=== PATIENT | female | born 1975 | race Caucasian/White ===

== ENCOUNTER 2020-02-08 14:24 | Outpatient (CLI) | payer OTHER, SELFPAY ==
--- NOTE | ~2020-02-08 | US_ITS ---
EXAMINATION: US OB <=14 wk fetus w TV DATE: 02/08/2020 15:14 INDICATION: First trimester dating and viability assessment. TECHNIQUE: Real-time pelvic transabdominal and transvaginal ultrasound was performed. COMPARISON: None. FINDINGS: The uterus measures 12.0 x 6.8 x 7.2 cm. Multiple nabothian cysts are noted in the cervix. There is an intrauterine gestational sac. A yolk sac is identified. heart motion is identified measuring 129 beats per minute (bpm) by M-mode Doppler. The crown rump length measures 11 mm , which correlates with an estimated gestational age of 7 weeks and 2 day(s) (+/-) 5 day(s). The right ovary measures 2.7 x 1.5 x 1.9 cm. The left ovary measures 4.2 x 3.9 x 4.2 cm and contains a 3.4 cm cyst. There is normal vascular flow in the ovaries. There is no free fluid in the pelvis. IMPRESSION: 1. Live intrauterine with an estimated gestational age of 7 weeks and 2 day(s) (+/-) 5 day( s) and an estimated delivery date of 09/24/2020. Reviewed, dictated and finalized at location A. IMPRESSION: 1. Live intrauterine with an estimated gestational age of 7 weeks and 2 day(s) (+/-) 5 day(s) and an estimated delivery date of 09/24/2020.
== END 2020-02-08 14:25 | disposition home or self-care (01) ==
LOC: CHSIMG 14:27
PROVIDERS: Visit Provider Student in an Organized Health Care Education/Training Program
DX: Z34.90 Encounter for supervision of normal pregnancy, unspecified, unspecified trimester (principal)
CPT/HCPCS: 76801; 76817

== ENCOUNTER 2020-02-28 14:34 | Outpatient (CLI) | payer OTHER, SELFPAY ==
[2020-02-28 14:53] LABS: Basophils Percent Auto 0.3 % (0.2-1.2); Eosinophils Absolute Auto 0.1 K/mm3 (0-0.3); Eosinophils Percent Auto 1.5 % (0-4.4); Hematocrit 42.1 % (37.0-47.0); Hemoglobin 14.1 g/dL (12.0-15.0); Immature Granulocyte Absolute 0.02 K/mm3 (0.00-0.031); Immature Granulocyte Percent A 0.2 % (0-0.5); Lymphocytes Absolute Auto 1.57 K/mm3 (0.9-3.2); Lymphocytes Percent Auto 18.3 % (18.3-44.2); Mean Corpuscular HGB Conc 33.5 g/dl (32-36); Mean Corpuscular Hemoglobin 30.4 pg (26-34); Mean Corpuscular Volume 90.7 fl (80-100); Mean Platelet Volume 8.9 fl (7.4-10.4); Monocytes Absolute Auto 0.7 K/mm3 (0.1-0.6); Monocytes Percent Auto 7.7 % (2.6-8.5); Neutrophils Absolute Auto 6.2 K/mm3 (1.3-6.7); Platelet Count Result 251 k/mm3 (150-375); Red Blood Count 4.64 M/mm3 (4.2-5.4); Red Cell Distribution Width 13.7 % (11.5-14.5); White Blood Count 8.6 K/mm3 (4.5-10.0)
== END 2020-02-28 14:35 | disposition home or self-care (01) ==
PROVIDERS: Visit Provider Student in an Organized Health Care Education/Training Program
DX: O02.1 Missed abortion (principal)
CPT/HCPCS: 36415; 84702; 85025; 86850; 86900; 86901

== ENCOUNTER 2020-03-06 14:21 | Outpatient (CLI) | payer OTHER, SELFPAY ==
[2020-03-06 15:36] LABS: Beta HCG Quantitative 143.24 mIU/ML
== END 2020-03-06 14:22 | disposition home or self-care (01) ==
PROVIDERS: Visit Provider Student in an Organized Health Care Education/Training Program
DX: O03.9 Complete or unspecified spontaneous abortion without complication (principal)
CPT/HCPCS: 36415; 84702

== ENCOUNTER 2020-03-21 09:52 | Emergency (ER) | payer OTHER, SELFPAY ==
--- NOTE | ~2020-03-21 | US_ITS ---
EXAMINATION: US pelvic complete w TV EXAM DATE: 03/21/2020 10:52 INDICATION: Miscarriage 3 weeks ago. D and C. Bleeding. Concern for retained products of conception. TECHNIQUE: Pelvic transabdominal and transvaginal sonogram was performed. There are multiple graysca le and Doppler images available for interpretation. There is no prior study for comparison. FINDINGS: Uterus measures 10.0 x 4.8 x 6.5 cm, and is morphologically normal. Endometrial stripe me asures 7 mm, within normal limits. There are nabothian cysts. There is small region of decreased att enuation within the endometrial cavity measuring about 5 mm in thickness by 1.5 cm in diameter, has m ild hypervascularity compared to the surrounding tissue. Possible retained products of conception. Th ere is no free pelvic fluid. Right adnexa: The ovary measures 3.8 x 3.1 x 3.4 cm and has the dominant follicle. Ovarian vascular f low confirmed. Left adnexa: The ovary measures 3.1 x 1.9 x 1.5 cm and is morphologically normal. Ovarian vascular fl ow confirmed. IMPRESSION: Small focal region of endometrial decreased echogenicity and hypervascularity, possible r etained products of conception. Reviewed, dictated and finalized at location B. ICAL APPLIANCE FITTER IMPRESSION: Small focal region of endometrial decreased echogenicity and hyperv ascularity, possible retained products of conception.
[2020-03-21 10:00] VITALS: BP 133/70; PULSE 70; RESP 16; TEMP 36.3; O2SAT 100
--- NOTE | 2020-03-21 10:15 | ED.GENADULT ---
HPI - General Adult General Chief complaint: OB/Uterine Contractions Stated complaint: 45YO female [id number] is 3 weeks s/p a spontaneous MC at approx 11 weeks GA. Patient did well for 2 weeks post MC but started having PV Bleeding approx 1 week ago that has been getting worse. Patient here c/o weakness, fatigue and was unabel to continue working today. here for eval. Related Data Home Medications Medication Instructions Recorded Confirmed clonidine HCl 0.1 mg tablet 0.1 mg PO DAILY 03/06/20 escitalopram oxalate 5 mg tablet 5 mg PO DAILY 03/06/20 Allergies Allergy/AdvReac Type Severity Reaction Status Date / Time No Known Allergies Allergy Verified 03/06/20 13:48 Review of Systems Constitutional: Constitutional: Reports as per HPI, Reports fatigue and Reports weakness Eyes: Eyes: Reports no additional eye complaints ENT: Reports system reviewed and no additional complaints, except as documented Cardiovascular: Cardiovascular: Reports no additional cardiovascular complaints Respiratory: Respiratory: Reports no additional respiratory complaints Gastrointestinal: Gastrointestinal: Reports no additional gastrointestinal complaints Genitourinary: Genitourinary: Reports abnormal vaginal bleeding Musculoskeletal: Musculoskeletal: Reports no additional musculoskeletal complaints Integumentary/Breasts: Skin/Breast: Reports system reviewed and no additional complaints, except as docu Neurologic: Reports system reviewed and no additional complaints, except as documented Psychiatric: Psychiatric: Reports no additional psychiatric complaints Endocrine: Endocrine: Reports no additional endocrine complaints Hematologic/Lymphatic: Hematologic/Lymphatic: Reports no additional hematologic/lymphatic complaints Allergic/Immunologic: Allergic/Immunologic: Reports no additional allergic/immunologic complaints PMFSH Past Medical History Medical History Essential (primary) hypertension Incomplete Major depression Family History Family History Mother Diabetes mellitus Father Cerebrovascular accident Social History Social History Smoking status: Former smoker Smoking end date: 05/16/12 Alcohol intake: never Exam Const: General: healthy appearing, no acute distress and alert Orientation/consciousness: patient oriented x3 HENMT: Head: normal to inspection Eyes: Conjunctivae: conjunctivae normal Neck: Neck: normal visual inspection Chest: Chest palpation & inspection: normal inspection of the chest Resp: Effort & Inspection: normal respiratory effort, not labored and not tachypneic Auscultation: clear to auscultation bilaterally Cardio: Rate: regular rate Rhythm: regular rhythm GI: Inspection: non-distended GI Palp: Yes Soft to palpation, No Tenderness to palpation present (GI), No Guarding due to palpation present (GI), No Rigid due to palpation and No Rebound tenderness present Course Course Emergency Course: D/W dr Mascorro (OB) who agrees with w/u and need for D&C. Requests patient to be d/c from our ER w/ referral to DR Mascorro (OB) and to proceed by Private Vehicle to [facility]. Transfer Transfered to: [facility] Transportation: Other (Private Vehicle) Accepting physician: Dr Mascorro (OB) Medical Decision Making Medical Records Medical records reviewed: Yes I reviewed the patient's medical records. Lab Data Lab results reviewed: Yes I reviewed the patient's lab results. Imaging Data Attestation: I personally reviewed and interpreted this imaging study as follows: My impression: Agree with RAds Critical Care Time Critical Care Time Critical Care Time: No Discharge Plan Discharge Clinical Impression: Retained products of conception after miscarriage Patient Disposition: Home, Self-Care Condition: Stabl
[2020-03-21 10:26] LABS: Basophils Absolute Auto 0.04 K/mm3 (0.00-0.10); Basophils Percent Auto 0.7 % (0.0-1.0); Eosinophils Absolute Auto 0.15 K/mm3 (0.02-0.50); Eosinophils Percent Auto 2.8 % (1.0-6.0); Hematocrit 31.8 % (35.0-49.0); Hemoglobin 10.4 g/dL (12.0-15.0); Immature Granulocyte Absolute 0.02 K/mm3 (0.00-0.00); Immature Granulocyte Percent A 0.4 % (0.0-0.0); Lymphocytes Absolute Auto 1.72 K/mm3 (1.10-4.50); Lymphocytes Percent Auto 31.6 % (18.0-42.0); Mean Corpuscular HGB Conc 32.7 g/dL (32.0-36.0); Mean Corpuscular Hemoglobin 30.2 pg (27.0-31.0); Mean Corpuscular Volume 92.4 fL (78.0-102.0); Mean Platelet Volume 8.2 fl (9.2-11.8); Monocytes Absolute Auto 0.55 K/mm3 (0.10-0.90); Monocytes Percent Auto 10.1 % (2.0-11.0); Neutrophils Percent Auto 54.4 % (50.0-70.0); Platelet Count Result 242 K/mm3 (150-420); Red Blood Count 3.44 M/mm3 (4.20-5.40); Red Cell Distribution Width 13.1 % (11.6-14.4); White Blood Count 5.4 K/mm3 (4.8-10.8)
--- NOTE | 2020-03-21 10:44 | PC.NURSE ---
pt to xray per wheelchair for ultrasound and returned at this time.
--- NOTE | 2020-03-21 10:47 | PC.NURSE ---
report to JEANNA Hodge. care turned over at this time.
[2020-03-21 10:48] LABS: Alanine Aminotransferase 23 U/L (14-59); Albumin Level 3.5 g/dL (3.4-5.0); Alkaline Phosphatase 35 U/L (46-116); Anion Gap 6 mmol/L (8-16); Aspartate Amino Transferase 13 U/L (15-37); Bilirubin,Total 0.3 mg/dL (0.00-1.00); Blood Urea Nitrogen 15 mg/dL (7-18); Calcium 8.8 mg/dL (8.5-10.1); Carbon Dioxide 29 mmol/L (21-32); Chloride 106 mmol/L (98-108); Estimated CRCL calculation 86 ml/min; Estimated Glomerular Filt Rate > 60; Glucose 94 mg/dL (70-99); Osmolality Calculated 292 mOsm/kg (285-295); Potassium 3.9 mmol/L (3.5-5.1); Sodium 141 mmol/L (136-145); Total Protein 6.8 g/dL (6.4-8.2)
[2020-03-21 10:53] LABS: Partial Thromboplastin Time 24.3 SEC (22.3-31.6); Prothrombin Time 10.1 Seconds (9.64-11.0)
--- NOTE | 2020-03-21 11:25 | PC.NURSE ---
DR PETERSON CALLED FOR CONSULT ON THIS PATIENT - PT CONDITION REMAINS STABLE
--- NOTE | 2020-03-21 11:33 | PC.NURSE ---
SPOKE WITH DR PETERSON - PT TO BE DISCHARGED FROM THIS FACILITY WITH REFERRAL TO [facility] CALLED AND GIVEN UPDATE ON STATUS - PT STATES SHE FELS COMFORTABLE IN TAKING HERSELF THERE FOR OUTPATIENT D&C
[2020-03-21 11:41] VITALS: BP 137/79; PULSE 70; O2SAT 100
--- NOTE | 2020-03-21 14:02 | PM.IMHP ---
H&P: HPI History of Present Illness Date/Time: 03/21/20 14:02 Chief complaint: Bleeding after miscarrige Narrative: Shavonne Aleman is a 45 year old female LMP 12/17/19 who presented to Emergency Department with complaints of heavy vaginal bleeding. Patient presented to the gynecology office on 02/27 with an incomplete . She was bleeding heavily in the office and passed clots as well as products of conception while in the office. Bleeding and passage of products of conception subsided and patient was discharged from the office in stable condition. She was prescribed Cytotec to take at home. She was seen in the office approximately one week later on 03/06 and reported intermittent bleeding that had subsided the evening prior to the appointment. Since that visit, patient reported continuation of intermittent bleeding, however, states that bleeding seemed to resolve on 03/14. on 03/17, patient states that bleeding started again, however, was manageable . Yesterday morning, patient woke up at approximately 6:00 a.m. with heavy vaginal bleeding. States that since yesterday morning, she has been bleeding heavily and going through 2-3 fully saturated pads per hour with passage of large blood clots. She states that she has saturated all of the pants that she has and resorted to sitting on a trash bag at work. Patient was at work this morning and reports an episode of syncope, which prompted her to go to the emergency department. She presented to the emergency department at [facility]. A CBC was drawn and showed a significant drop in hemoglobin from 14 approximately 3 weeks ago to 10 today. Pelvic ultrasound was also performed showing an approximate 1.5 cm x 0.5 cm area of hypervascularity, possible retained products of conception. A pelvic exam was not performed. The patient reported feeling stable enough to drive self to [place] [facility] for further evaluation and management. Patient currently reports feeling a bit weak and fatigued, however, has also not eaten today. She denies any significant headache, dizziness, chest pain, shortness of breath, nausea or vomiting. She also denies any pelvic pain or cramping. Review of Systems Constitutional: Constitutional: Reports as per HPI, Reports no additional constitutional complaints, Reports fatigue and Denies headache(s) Eyes: Eyes: Reports as per HPI and Reports no additional eye complaints ENT: Reports system reviewed and no additional complaints, except as documented and Reports as per HPI Cardiovascular: Cardiovascular: Reports as per HPI, Reports no additional cardiovascular complaints and Denies chest pain Respiratory: Respiratory: Reports as per HPI, Reports no additional respiratory complaints and Denies dyspnea Gastrointestinal: Gastrointestinal: Reports as per HPI, Reports no additional gastrointestinal complaints, Denies abdominal pain, Denies nausea and Denies vomiting Genitourinary: Genitourinary: Reports no additional female genitourinary complaints and Reports as per HPI Musculoskeletal: Musculoskeletal: Reports no additional musculoskeletal complaints and Reports as per HPI Integumentary/Breasts: Skin/Breast: Reports system reviewed and no additional complaints, except as docu and Reports as per HPI Neurologic: Reports system reviewed and no additional complaints, except as documented, Reports as per HPI and Reports syncope Psychiatric: Psychiatric: Reports no additional psychiatric complaints and Reports as per HPI Endocrine: Endocrine: Reports no additional endocrine complaints and Reports as per HPI Hematologic/Lymphatic: Hematologic/Lymphatic: Reports no additional hematologic/lymphatic complaints and Reports as per HPI Allergic/Immunologic: Allergic/Immunologic: Reports no additional allergic/immunologic complaints and Reports as per HPI [facility] Past [facility] History [facility]
--- NOTE | 2020-03-21 16:16 | WPDHPUPDATE1 ---
History and Physical Update Update Date/Time: 03/21/20 16:16 History and Physical has been reviewed, including an updated exam of the patient. There are NO changes in the patient's condition. Risks, benefits, and alternatives have been discussed and questions answered. Patient agrees to proceed with procedure.
--- NOTE | 2020-03-21 16:29 | PM.PROC ---
Procedure Note - Detailed Date of procedure: 03/21/20 Pre-op diagnosis: Bleeding after miscarrige Abnormal uterine bleeding Post-op diagnosis: same Procedure performed: Suction dilation and curettage Description of procedure: The patient was taken to the operating room where she self transferred to the operating room table. Patient was placed in dorsal supine position. Anesthesia was administered and found to be adequate. The patient was repositioned in dorsal lithotomy position with the use of Justin stirrups. Blood was noted to be dripping from the patient's vagina. The patient was prepped and draped in the usual sterile fashion. A red rubber catheter was used to drain the bladder of 350 cc of clear urine. A bivalve speculum was inserted into vagina. The vagina was cleared with a sponge stick. The cervix was well visualized. The anterior lip of the cervix was grasped with a single-tooth tenaculum. A paracervical block was performed with 1% lidocaine. 5 cc of lidocaine was administered on both sides for a total of 10 cc. The cervix was then serially dilated to accommodate a size 7 rigid curette. The curette was introduced into the endometrial cavity and connected to the suction tubing. The suction aspirator was then activated and the curette was gently rotated clearing the cavity of all contents. A few passes with the rigid curette were made. A Velasquez curette was then introduced into the endometrial cavity and all quadrants of the cavity were explored. A gritty texture was noted and the procedure was deemed complete. The tenaculum was removed. The tenaculum puncture sites were noted to be oozing. These sites were made hemostatic with silver nitrate. Excellent hemostasis was noted. The vagina was then cleansed and dried and the speculum was removed. The remainder the patient was cleansed and dried. She was taken out of the dorsal lithotomy position and awakened from anesthesia without difficulty. She was transferred to recovery room in stable condition. All sponge and instrument counts were correct at the end of the procedure. The evacuated uterine contents and endometrial curettings were prepared to be sent to pathology for analysis. The patient tolerated the procedure well Anesthesia: MAC Surgeon: Susie Mascorro MD Estimated blood loss (mL): 20 IV fluids (mL): 1,000 Urine output (mL): 350 Drains: No Packing: No Pathology: yes (uterine contents, endometrial curettings) Complications: No immediate complications Condition: stable Disposition: same day Findings: Minimal amount of tissue collected, possible retained products of conception
== END 2020-03-21 11:45 | disposition home or self-care (01) ==
PROVIDERS: Emergency Provider Family Medicine; PCP Nurse Practitioner Family
DX: O03.4 Incomplete spontaneous abortion without complication (principal)
CPT/HCPCS: 36415; 76830; 76856; 80053; 84702; 85025; 85610; 85730; 99283; 99284

== ENCOUNTER 2020-03-21 12:27 | Day surgery (SDC) | payer OTHER, SELFPAY ==
[2020-03-21] VITALS (8 sets, daily range): BP systolic 100–132; BP diastolic 59–89; PULSE 57–72; RESP 14–21; TEMP 36.4–36.6; O2SAT 98–100
--- NOTE | 2020-03-21 12:55 | PC.NURSE ---
patient brought back to ED room 12 with heavy vaginal bleeding that started yesterday. see triage notes. states she had a miscarriage on 02/28/20. OB is aware of bleeding. room prepped for pelvic exam.
--- NOTE | 2020-03-21 13:56 | ED.FEMALEGU ---
HPI - Female Genitourinary General Chief complaint: Vaginal Bleeding Stated complaint: vaginal bleeding Time Seen by Provider: 03/21/20 13:21 History of Present Illness HPI Narrative: Patient is a 45-year-old female who presents ER from [facility] emergency room for evaluation of vaginal bleeding. Patient is 3 weeks status post miscarriage of a 11-week . She sees Dr. Mascorro. Patient began having very heavy vaginal bleeding over the last couple days. She has been bleeding through 1-2 pads an hour. Her hemoglobin is dropped from 14-10. She had an episode of syncope this morning. She also reports exertional fatigue dizziness with standing. No blood thinners. Related Data Home Medications Medication Instructions Recorded Confirmed clonidine HCl 0.1 mg tablet 0.1 mg PO DAILY 03/06/20 03/21/20 escitalopram oxalate 5 mg tablet 5 mg PO DAILY 03/06/20 03/21/20 Allergies Allergy/AdvReac Type Severity Reaction Status Date / Time No Known Allergies Allergy Verified 03/21/20 12:33 Review of Systems Review of Systems: All systems reviewed & are unremarkable except as noted in HPI and below Constitutional: Constitutional: Denies chills and Denies fatigue ENT: Denies nasal congestion and Denies sore throat Gastrointestinal: Gastrointestinal: Denies abdominal pain, Denies nausea and Denies vomiting Genitourinary: Genitourinary: Reports abnormal vaginal bleeding, Denies dysuria, Denies flank pain and Denies vaginal discharge Neurologic: Reports syncope PMFSH Past Medical History Medical History Essential (primary) hypertension Incomplete Major depression Family History Family History Mother Diabetes mellitus Father Cerebrovascular accident Social History Social History Smoking status: Former smoker Smoking end date: 05/16/12 Alcohol intake: never Gender identity (if verbalized by the patient): Female Exam Narrative: Exam Narrative: GENERAL: Well-appearing, well-nourished, and in no acute distress. HEAD: Normocephalic, atraumatic. ENT: Mucous membranes moist. CHEST: Clear to auscultation. No respiratory distress. HEART: Regular rate and rhythm. Normal peripheral pulses. ABDOMEN: Soft, nontender, nondistended. Pelvic: deferred OB. EXTREMITIES: Normal range of motion. No edema. SKIN: Warm, dry, no rash. NEURO: Alert and oriented x3. Course Course Emergency Course: Patient had a couple coffee this morning and has had nothing else to eat. Will be at bedside and examined patient will take her to the OR. We will order a type and screen and place an IV. Vital Signs Vital signs: Vital Signs Temperature 98 F 03/21/20 12:29 Pulse Rate 72 03/21/20 12:29 Respiratory Rate 16 03/21/20 12:29 Blood Pressure 132/78 03/21/20 12:29 Pulse Oximetry 100 03/21/20 12:29 Temperature 98 F 03/21/20 12:29 Pulse Rate 61 03/21/20 14:17 Respiratory Rate 19 03/21/20 14:17 Blood Pressure 132/78 03/21/20 12:29 Pulse Oximetry 99 03/21/20 14:17 Discharge Plan Discharge Clinical Impression: Retained products of conception, Abnormal vaginal bleeding Patient Disposition: Still a Patient Condition: Stable
--- NOTE | 2020-03-21 14:02 | HP_ITS ---
This report was moved to the correct visit, [id number] on 03/26/2020. Original report was signed by Susie Mascorro MD on 03/21/20 [id number]. H&P: HPI History of Present Illness Date/Time: 03/21/20 14:02 Chief complaint: Bleeding after miscarrige Narrative: Shavonne Aleman is a 45 year old female LMP 12/17/19 who presented to Emergency Department with complaints of heavy vaginal bleeding. Patient presented to the gynecology office on 02/27 with an incomplete . She was bleeding heavily in the office and passed clots as well as products of conception while in the office. Bleeding and passage of products of conception subsided and patient was discharged from the office in stable condition. She was prescribed Cytotec to take at home. She was seen in the office approximately one week later on 03/06 and reported intermittent bleeding that had subsided the evening prior to the appointment. Since that visit, patient reported continuation of intermittent bleeding, however, states that bleeding seemed to resolve on 03/14. on 03/17, patient states that bleeding started again, however, was manageable . Yesterday morning, patient woke up at approximately 6:00 a.m. with heavy vaginal bleeding. States that since yesterday morning, she has been bleeding heavily and going through 2-3 fully saturated pads per hour with passage of large blood clots. She states that she has saturated all of the pants that she has and resorted to sitting on a trash bag at work. Patient was at work this morning and reports an episode of syncope, which prompted her to go to the emergency department. She presented to the emergency department at [facility]. A CBC was drawn and showed a significant drop in hemoglobin from 14 approximately 3 weeks ago to 10 today. Pelvic ultrasound was also performed showing an approximate 1.5 cm x 0.5 cm area of hypervascularity, possible retained products of conception. A pelvic exam was not performed. The patient reported feeling stable enough to drive self to [facility] for further evaluation and management. Patient currently reports feeling a bit weak and fatigued, however, has also not eaten today. She denies any significant headache, dizziness, chest pain, shortness of breath, nausea or vomiting. She also denies any pelvic pain or cramping. Review of Systems Constitutional: Constitutional: Reports as per HPI, Reports no additional constitutional complaints, Reports fatigue and Denies headache(s) Eyes: Eyes: Reports as per HPI and Reports no additional eye complaints ENT: Reports system reviewed and no additional complaints, except as documented and Reports as per HPI Cardiovascular: Cardiovascular: Reports as per HPI, Reports no additional cardiovascular complaints and Denies chest pain Respiratory: Respiratory: Reports as per HPI, Reports no additional respiratory complaints and Denies dyspnea Gastrointestinal: Gastrointestinal: Reports as per HPI, Reports no additional gastrointestinal complaints, Denies abdominal pain, Denies nausea and Denies vomiting Genitourinary: Genitourinary: Reports no additional female genitourinary complaints and Reports as per HPI Musculoskeletal: Musculoskeletal: Reports no additional musculoskeletal complaints and Reports as per HPI Integumentary/Breasts: Skin/Breast: Reports system reviewed and no additional complaints, except as docu and Reports as per HPI Neurologic: Reports system reviewed and no additional complaints, except as documented, Reports as per HPI and Reports syncope Psychiatric: Psychiatric: Reports no additional psychiatric complaints and Reports as per HPI Endocrine: Endocrine: Reports no additional endocrine complaints and Reports as per HPI Hematologic/Lymphatic: Hematologic/Lymphatic:
--- NOTE | 2020-03-21 14:05 | PC.NURSE ---
pelvic exam done. patient scheduled to go to the OR this afternoon. SL inserted. labs sent.
--- NOTE | 2020-03-21 14:19 | PC.NURSE ---
report given to OR nurse. will transfer patient to room 7 via wheelchair.
--- NOTE | 2020-03-21 15:03 | WPDANESEPPF ---
Anes - Initial Pre Proc Eval Procedure: Operation Date: 03/21/20 15:30 Proposed Procedures p Suction Dilation and Curettage - Susie Mascorro MD Date/Time: 03/21/20 15:03 Surgeon: Susie Mascorro MD Pre Op Diagnosis: vaginal bleeding Patient Data Age: 45 Gender: F Height: 1.68 m Weight: 88.9 kg Last Vital Signs Temp 36.4 C L 03/21/20 14:48 Pulse 67 03/21/20 14:48 Resp 18 03/21/20 14:48 BP 130/89 03/21/20 14:48 Pulse Ox 100 03/21/20 14:48 Allergies Allergy/AdvReac Type Severity Reaction Status Date / Time No Known Allergies Allergy Verified 03/21/20 12:33 Home Medications Medication Instructions Recorded Confirmed Type clonidine HCl 0.1 mg tablet 0.1 mg PO DAILY 03/06/20 03/21/20 History escitalopram oxalate 5 mg tablet 5 mg PO DAILY 03/06/20 03/21/20 History Patient hx anesthesia problems: none Family hx anesthesia problems: none PMFSH Past Medical History Medical History Essential (primary) hypertension Incomplete Major depression Family History Family History Mother Diabetes mellitus Father Cerebrovascular accident Social History Social History Smoking status: Former smoker Smoking end date: 05/16/12 Alcohol intake: never Gender identity (if verbalized by the patient): Female Anes - Eval Final PreProcedure Day of Procedure 03/21/20 15:03 Patient weight: obese Heart: regular rate and rhythm Lungs: clear to auscultation and normal air movement Airway: Mallampati scale class II Neurological: alert and oriented Last oral intake: >/= 8 hours ASA classification: II Emergent: no Anesthetic plan: proceed Anesthesia type and monitoring: general GIVS and LMA Informed Consent: The patient's anesthetic plan and its attendant risks and benefits were discussed with the patient/family/POA. Questions were solicited and answers provided to the satisfaction of the patient/family/POA.
--- NOTE | 2020-03-21 16:16 | HP_ITS ---
This report was moved to the correct visit, [id number] on 03/26/2020. Original report was signed by Susie Mascorro MD on 03/21/201615. History and Physical Update Update Date/Time: 03/21/20 16:16 History and Physical has been reviewed, including an updated exam of the patient. There are NO changes in the patient's condition. Risks, benefits, and alternatives have been discussed and questions answered. Patient agrees to proceed with procedure. Report Initialized date/time: Susie Mascorro MD 03/21/201615 Electronically signed by: Susie Mascorro MD 03/21/201615 [facility]
--- NOTE | 2020-03-21 16:29 | OP_ITS ---
This report was moved to the correct visit, [id number] on 03/26/2020. Original report was signed by Susie Mascorro MD on 03/21/20 [id number]. Procedure Note - Detailed Date of procedure: 03/21/20 Pre-op diagnosis: Bleeding after miscarrige Abnormal uterine bleeding Post-op diagnosis: same Procedure performed: Suction dilation and curettage Description of procedure: The patient was taken to the operating room where she self transferred to the operating room table. Patient was placed in dorsal supine position. Anesthesia was administered and found to be adequate. The patient was repositioned in dorsal lithotomy position with the use of Justin stirrups. Blood was noted to be dripping from the patient's vagina. The patient was prepped and draped in the usual sterile fashion. A red rubber catheter was used to drain the bladder of 350 cc of clear urine. A bivalve speculum was inserted into vagina. The vagina was cleared with a sponge stick. The cervix was well visualized. The anterior lip of the cervix was grasped with a single-tooth tenaculum. A paracervical block was performed with 1% lidocaine. 5 cc of lidocaine was administered on both sides for a total of 10 cc. The cervix was then serially dilated to accommodate a size 7 rigid curette. The curette was introduced into the endometrial cavity and connected to the suction tubing. The suction aspirator was then activated and the curette was gently rotated clearing the cavity of all contents. A few passes with the rigid curette were made. A Velasquez curette was then introduced into the endometrial cavity and all quadrants of the cavity were explored. A gritty texture was noted and the procedure was deemed complete. The tenaculum was removed. The tenaculum puncture sites were noted to be oozing. These sites were made hemostatic with silver nitrate. Excellent hemostasis was noted. The vagina was then cleansed and dried and the speculum was removed. The remainder the patient was cleansed and dried. She was taken out of the dorsal lithotomy position and awakened from anesthesia without difficulty. She was transferred to recovery room in stable condition. All sponge and instrument counts were correct at the end of the procedure. The evacuated uterine contents and endometrial curettings were prepared to be sent to pathology for analysis. The patient tolerated the procedure well Anesthesia: MAC Surgeon: Susie Mascorro MD Estimated blood loss (mL): 20 IV fluids (mL): 1,000 Urine output (mL): 350 Drains: No Packing: No Pathology: yes (uterine contents, endometrial curettings) Complications: No immediate complications Condition: stable Disposition: same day Findings: Minimal amount of tissue collected, possible retained products of conception Report Initialized date/time: Susie Mascorro MD 03/21/20 / 1629 Electronically signed by: Susie Mascorro MD 03/21/20 0705 [facility]
[2020-03-21] MEDS: LIDOCAINE HCL 1% LOCAL INJ 20 ML VIAL 10 ML INFILTRATE (17:35)
== END 2020-03-21 19:00 | disposition home or self-care (01) ==
LOC: ANHED 13:33 → ANHSURGERY 13:55
PROVIDERS: Emergency Provider Emergency Medicine; PCP Nurse Practitioner Family; Visit Provider Student in an Organized Health Care Education/Training Program
PROC: (CPT 59812; principal; 2020-03-21 15:30)
DX: N93.8 Other specified abnormal uterine and vaginal bleeding (principal); N85.8 Other specified noninflammatory disorders of uterus; Z87.59 Personal history of other complications of pregnancy, childbirth and the puerperium; I10 Essential (primary) hypertension; F32.9 Major depressive disorder, single episode, unspecified; E66.9 Obesity, unspecified; Z68.31 Body mass index [BMI] 31.0-31.9, adult; F43.10 Post-traumatic stress disorder, unspecified; Z87.891 Personal history of nicotine dependence; Z79.899 Other long term (current) drug therapy
CPT/HCPCS: 59812; 36415; 86850; 86900; 86901; 88305; 99285; A9270; J1100; J2250; J2405; J2704; J3010

== ENCOUNTER 2021-04-01 17:20 | Outpatient (CLI) | payer OTHER, SELFPAY ==
[2021-04-01 17:36] LABS: Basophils Absolute Auto 0.05 K/mm3 (0.00-0.10); Basophils Percent Auto 0.9 % (0.0-1.0); Eosinophils Absolute Auto 0.16 K/mm3 (0.02-0.50); Eosinophils Percent Auto 2.7 % (1.0-6.0); Hematocrit 38.2 % (35.0-49.0); Hemoglobin 12.5 g/dL (12.0-15.0); Immature Granulocyte Absolute 0.03 K/mm3 (0.00-0.00); Immature Granulocyte Percent A 0.5 % (0.0-0.0); Lymphocytes Absolute Auto 2.24 K/mm3 (1.10-4.50); Lymphocytes Percent Auto 38.4 % (18.0-42.0); Mean Corpuscular HGB Conc 32.7 g/dL (32.0-36.0); Mean Corpuscular Hemoglobin 30.1 pg (27.0-31.0); Mean Platelet Volume 8.2 fl (9.2-11.8); Monocytes Absolute Auto 0.63 K/mm3 (0.10-0.90); Monocytes Percent Auto 10.8 % (2.0-11.0); Neutrophils Absolute Auto 2.7 K/mm3 (1.7-7.2); Neutrophils Percent Auto 46.7 % (50.0-70.0); Platelet Count Result 278 K/mm3 (150-420); Red Blood Count 4.15 M/mm3 (4.20-5.40); Red Cell Distribution Width 13.5 % (11.6-14.4); White Blood Count 5.8 K/mm3 (4.8-10.8)
[2021-04-01 17:37] LABS: Add Urine Microscopic? YES; Appearance Urine Clear (Clear); Bilirubin Urine Negative (Negative); Blood Urine 3+ (Negative); Color Urine Light Yellow (Yellow); Glucose Urine UA Negative (Negative); Ketones Urine Negative (Negative); Leukocyte Esterase Ur Negative LEU/UL (Negative); Nitrate Urine Negative (Negative); Protein Urine Negative (Negative); Specific Grav Ur 1.015 (1.010-1.020); Urobilinogen Urine 0.2 mg/dL (0.2-1.0); pH Urine 6.5 (5.0-8.0)
[2021-04-01 18:08] LABS: Bacteria Urine None seen /hpf; Squamous Epithelial Cell Urine Rare /hpf (Few); WBC Urine 0-3 /hpf (0-3)
[2021-04-01 18:39] LABS: Alanine Aminotransferase 34 U/L (14-59); Albumin Level 3.9 g/dL (3.4-5.0); Alkaline Phosphatase 39 U/L (46-116); Anion Gap 9 mmol/L (8-16); Aspartate Amino Transferase 21 U/L (15-37); Bilirubin,Total 0.5 mg/dL (0.00-1.00); Blood Urea Nitrogen 14 mg/dL (7-18); Calcium 9.1 mg/dL (8.5-10.1); Carbon Dioxide 29 mmol/L (21-32); Chloride 101 mmol/L (98-108); Estimated Glomerular Filt Rate > 60; Glucose 82 mg/dL (70-99); Osmolality Calculated 287 mOsm/kg (285-295); Potassium 3.9 mmol/L (3.5-5.1); Sodium 139 mmol/L (136-145); Total Protein 7.4 g/dL (6.4-8.2)
[2021-04-06 16:11] LABS: Hemoglobin A1C 5.9 % (<5.7)
== END 2021-04-01 17:21 | disposition home or self-care (01) ==
LOC: CHSLAB 17:22
PROVIDERS: PCP Nurse Practitioner Family; Visit Provider Nurse Practitioner Family
DX: R63.1 Polydipsia (principal); I10 Essential (primary) hypertension; R82.90 Unspecified abnormal findings in urine; R73.09 Other abnormal glucose
CPT/HCPCS: 36415; 80053; 81001; 83036; 85025

== ENCOUNTER 2021-09-07 06:46 | Emergency (ER) | payer OTHER, SELFPAY ==
--- NOTE | ~2021-09-07 | XR_ITS ---
EXAMINATION: XR forearm RT 2V DATE: 09/07/2021 07:53 INDICATION: Right forearm dog bite. TECHNIQUE: 2 views of right forearm were obtained. COMPARISON: None. FINDINGS: Bone alignment is normal. No fracture. 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 There is mild osteoarthritis of first carpometacarpal joint. There is an enthesophyte at lateral humeral epicondyl e. No elbow joint effusion. IMPRESSION: 1. No acute fracture. Reviewed, dictated and finalized at location A. IMPRESSION: 1. No acute fracture.
[2021-09-07 07:00] VITALS: BP 152/100; PULSE 110; RESP 18; TEMP 36.2; O2SAT 97
--- NOTE | 2021-09-07 07:22 | ED.ANIMALBIT ---
HPI - Animal Bite General Chief Complaint: Animal Bite Stated Complaint: dog bite Time Seen by Provider: 09/07/21 07:15 Source: patient Mode of arrival: ambulatory Limitations: no limitations History of Present Illness HPI narrative: this is a 46-year-old female presents with a dog puncture wounds on her right forearm after there was altercation with family pet and neighbor dog that chased her family pet into the house, the patient tried to get the dog off of her dog and the neighbor dog latched onto her right forearm causing multiple puncture wounds with swelling and pain in her mid right forearm, has good range of motion in her forearm wrist and fingers with no numbness or tingling rates her pain about a 3/10. complaint: animal bite Onset (ago): hour(s) Animal: dog Description of animal: household pet Mechanism: bite Location - Extremities: Right: forearm ( multiple puncture wounds) Severity scale (1-10): 3 Context: animals fighting Related Data Allergies Allergy/AdvReac Type Severity Reaction Status Date / Time No Known Allergies Allergy Verified 04/01/21 17:05 Review of Systems Review of Systems: All systems reviewed & are unremarkable except as noted in HPI and below PMFSH Past Medical History Medical History Abnormal uterine bleeding Abnormal vaginal bleeding Advanced maternal age (AMA), 40 years or greater Encounter for confirmation of test result with physical examination Essential (primary) hypertension Incomplete Major depression Retained products of conception Spontaneous miscarriage Surgical History Surgical History Previous section 2014 Family History Family History Mother Diabetes mellitus Father Cerebrovascular accident Social History Social History Smoking status: Former smoker Smoking end date: 05/16/12 Alcohol intake: current Alcohol use details: social Substance use: never Substance use type: does not use Additional living arrangements comments: daughter, boyfriend 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 Gender identity (if verbalized by the patient): Female Exam Const: General: no acute distress Orientation/consciousness: patient oriented x3 HENMT: Head: normal to inspection Eyes: Conjunctivae: conjunctivae normal Pupils: Equal, round and reactive pupils present Neck: Neck: normal visual inspection Chest: Chest palpation & inspection: normal inspection of the chest Resp: Effort & Inspection: normal respiratory effort Auscultation: clear to auscultation bilaterally Cardio: Rate: regular rate Rhythm: regular rhythm GI: GI Palp: Yes Soft to palpation Percussion: Yes normal to percussion Back/Spine/Pelvis: Back: no CVA tenderness Skin: Other: Five distinct puncture wounds located on her right forearm with swelling and erythema Neuro: General: patient oriented x3, moves all extremities and no meningeal signs Extrem: General: normal to inspection and edema Psych: Mental Status: mental status grossly normal Affect: normal affect Course Course Emergency Course: patient assessment of pain scale rates her pain at a 3/10 declined any pain medication at this time, patient received her tetanus, 1g of ceftriaxone and multiple sutures placed in dog bite puncture wounds. X-ray forearm reviewed with patient. Vital Signs Vital signs: Vital Signs Temperature 36.2 C L 09/07/21 07:00 Pulse Rate 110 H 09/07/21 07:00 Respiratory Rate 18 09/07/21 07:00 Blood Pressure 152/100 H 09/07/21 07:00 Pulse Oximetry 97 09/07/21 07:00 Temperature 36.2 C L 09/07/21 07:00 Pulse Rate 110 H 09/07/21 07:00 Respiratory Rate 18 09/07/21 07:00 Blood Pressure 152/1
[2021-09-07] MEDS: LIDOCAINE HCL 1% LOCAL INJ 20 ML VIAL (07:32)
[2021-09-07] MEDS: cefTRIAXone 1 GM VIAL IM (07:33)
[2021-09-07] MEDS: TETANUS,DIPHTHERIA,AC PERTUSSIS ADULT 0.5 ML (ADACEL) IM (07:33)
[2021-09-07 08:23] VITALS: BP 132/72; PULSE 82; RESP 20; TEMP 36.9; O2SAT 94
== END 2021-09-07 08:26 | disposition home or self-care (01) ==
PROVIDERS: Emergency Provider Emergency Medicine; PCP Nurse Practitioner Family
DX: S41.131A Puncture wound without foreign body of right upper arm, initial encounter (principal); W54.0XXA Bitten by dog, initial encounter
CPT/HCPCS: 12001; 73090; 90471; 90715; 96372; 99283; J0696

== ENCOUNTER 2021-09-21 16:51 | Outpatient (RCR) | payer OTHER, SELFPAY ==
--- NOTE | 2021-09-22 07:50 | OTOPEVAL ---
Thank you for referring Shavonne Aleman to [facility].? The patient is scheduled to be seen for therapy? ____x/week for ___ weeks. Please review, sign, date and return this plan of care SHAYLA. I agree with and certify that the following plan of care is medically necessary. Referring Physician Date Admitting Provider: Attending Provider: Alma Soto NP Referring Provider: *OT Outpatient Evaluation Start: 09/21/21 17:05 Freq: Status: Active Protocol: [place] 09/21/21 17:05 [facility] [place]Rec[place] 09/21/21 17:54 [facility] [id number] Therapy Assessment Status Assessment Status Assessment Status Evaluation Outpatient Past Medical History Psychosocial History Hx Depression Yes Hx Post Traumatic Stress Disorder Yes Evaluation Information Problem Diagnosis R UE pain Onset 09/07/21 Cause Injury of right forearm Subjective Information Patient was bit by a dog in Query Text:As Reported By Patient/ the R forearm on 09/07/21. Family Patient initially had 5 stitches and had them removed ~1 week ago. Patient states that she is able to use the R hand a little bit more but has much difficulty grasping and lifting anything. She is unable to type and perform her job duties. 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 Hand Dominance Right Activity of Daily Living Ability Independent Indoor/Home Mobility Independent Community Mobility Independent Stairs Ability Independent Functional Cognition (Planning, Shopping Independent , Taking Medications) Cooking Yes Cleaning Yes Laundry Yes Shopping Yes Driving Yes Pain Assessment Timing of Pain Assessment Timing of Pain Assessment Assessment Pain Scale Pain Scale Used Numeric (1 - 10) Self Report Pain Assessment Right Arm(s) Reported Pain Level 2 Pain Score Pain Score 2: Self Report Interventions Used Interventions Used By Clinicians Ice,Medication Upper Extremity Rang
--- NOTE | 2021-10-23 17:38 | OTOPEVAL ---
Thank you for referring Shavonne Aleman to [facility].? The patient is scheduled to be seen for therapy? ____x/week for ___ weeks. Please review, sign, date and return this plan of care SHAYLA. I agree with and certify that the following plan of care is medically necessary. Referring Physician Date Admitting Provider: Attending Provider: Alma Soto NP Referring Provider: *OT Outpatient Evaluation Start: 09/21/21 17:05 Freq: Status: Active Protocol: Document 10/23/21 16:58 [facility] [place] (Rec: 10/23/21 17:37 [facility] [place] [id number]) Therapy Assessment Status Assessment Status Assessment Status Discharge Outpatient Past Medical History Psychosocial History Hx Depression Yes Hx Post Traumatic Stress Disorder Yes Evaluation Information Problem Subjective Information Patient reports that overall Query Text:As Reported By Patient/ things are going well. Family Patient states that occasionally when she grasps and lifts something he will initiate some pain but overall she is able to do everything that she need to be able to. Pain Assessment Timing of Pain Assessment Timing of Pain Assessment Pre-Treatment Self Report Self Report Pain Level 0 Pain Score Pain Score 0: Self Report Upper Extremity Range of Motion General Upper Extremity Range of Motion Gross Upper Extremity Range of Motion Patient demonstrates full and Comments symmetrical ROM of B UE's, proximal and distal Hand Medical Legal Investigator/Pinch Strength Assessment Hand Right Medical Legal Investigator Strength (lbs) 42 Sensation Assessment Location Right 2 Point Discrimination Comments patient reports that she is able to tolerate wearing long sleeve but only with certain materials. Patient reports little to no numbness and tingling. General Exercise General Exercises Side Right Exercise Description Blue digi-flex, 2x20 Query Text:Record Sets, Reps, R elbow flexion/extension 2x20 Resistance, and Position with 3 lb weight R forearm pronation/supination , 2x20 with 3 lb weight R wrist flexion/extension, 2x20 with 3 lb weight Position Sitting Manual Therapy Manual Therapy Side Right Patient Position Sitting Treatment Comments IASTM/STM for scar Query Text:Include Technique and desensitization and for dorsal
== END 2021-10-23 10:49 | disposition home or self-care (01) ==
LOC: CHSOT 16:51
PROVIDERS: PCP Nurse Practitioner Family; Visit Provider Nurse Practitioner Family
DX: S59.911A Unspecified injury of right forearm, initial encounter (principal)
CPT/HCPCS: 97035; 97110; 97140; 97165

== ENCOUNTER 2022-03-04 15:00 | Emergency (ER) | payer OTHER, SELFPAY ==
[2022-03-04 15:11] VITALS: BP 146/91; PULSE 99; RESP 16; TEMP 36.6; O2SAT 98
--- NOTE | 2022-03-04 15:29 | ED.DENTAL ---
HPI - Dental/Oral General Chief complaint: Dental/Oral Stated complaint: tooth ache Time Seen by Provider: 03/04/22 15:05 Source: patient Mode of arrival: ambulatory Limitations: no limitations History of Present Illness HPI Narrative: this is a 47-year-old female with a history dental caries has a filling in the left lower molar that apparently got dislodged and currently having pain with surrounding gum inflammation with left submandibular gland pain with no fever chills no nausea vomiting no shortness of breath. MD Complaint: tooth pain Teeth map: 1. dental caries along with some surrounding gum inflammation with submandibular gland tenderness Onset (ago): day(s) Duration: constant Severity: moderate Severity scale (1-10): 9 Relieving factors: other Exacerbating factors: chewing, cold, drinking fluids and swallowing Context: history of dental caries Associated symptoms: gum swelling Treatment prior to arrival: none Related Data Allergies Allergy/AdvReac Type Severity Reaction Status Date / Time No Known Allergies Allergy Verified 03/04/22 15:21 Review of Systems Review of Systems: All systems reviewed & are unremarkable except as noted in HPI and below PMFSH Past Medical History Medical History Abnormal uterine bleeding Abnormal vaginal bleeding Advanced maternal age (AMA), 40 years or greater Encounter for confirmation of test result with physical examination Essential (primary) hypertension Foul smelling urine Incomplete Increased thirst Major depression Retained products of conception Spontaneous miscarriage Surgical History Surgical History Previous section 2014 Family History Family History Mother Diabetes mellitus Father Cerebrovascular accident Social History Social History Smoking status: Former smoker Smoking end date: 05/16/12 Alcohol intake: current Alcohol use details: social Substance use: never Substance use type: does not use Additional living arrangements comments: daughter, boyfriend 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 Gender identity (if verbalized by the patient): Female Exam Const: General: healthy appearing and no acute distress Limitations: no limitations HENMT: Head: normal to inspection Face/Nose/Sinus: Normal external nose present Face and sinus: normal facial exam Mouth: Yes Normal oral and palatal mucosa present Teeth and gingiva: abnormal tooth and associated gingiva Eyes: Conjunctivae: conjunctivae normal Pupils: Equal, round and reactive pupils present EOM: EOMs intact bilaterally Neck: Neck: normal visual inspection Chest: Chest palpation & inspection: normal inspection of the chest Resp: Effort & Inspection: normal respiratory effort Auscultation: clear to auscultation bilaterally Cardio: Rate: regular rate Rhythm: regular rhythm GI: Auscultation: normal bowel sounds Skin: General skin exam: normal color Rashes: no rashes Wounds: no wounds Neuro: General: patient oriented x3 and moves all extremities Cranial nerves: Yes Nystagmus not present Speech: normal speech Gait exam (Neuro): Normal gait present Extrem: General: normal to inspection Psych: Mental Status: mental status grossly normal Course Course Emergency Course: Patient received Toradol for pain and inflammation and advised patient follow with her dentist and to take antibiotics as prescribed. Vital Signs Vital signs: Vital Signs Temperature 36.6 C 03/04/22 15:11 Pulse Rate 99 03/04/22 15:11 Respiratory Rate 16 03/04/22 15:11 Blood Pressure 146/91 H 03/04/22 15:11 Pulse Oximetry 98 03/04/22 15:11 Oxygen Delivery Room Air 03/04/22 15:11 Temperature 36
[2022-03-04] MEDS: KETOROLAC (*BKC) 60 MG/2 ML VIAL IM (15:33)
[2022-03-04 15:44] VITALS: BP 146/91; PULSE 99; RESP 16; TEMP 36.6; O2SAT 98
== END 2022-03-04 16:00 | disposition home or self-care (01) ==
PROVIDERS: Emergency Provider Emergency Medicine
DX: K04.7 Periapical abscess without sinus (principal); K08.89 Other specified disorders of teeth and supporting structures; K02.9 Dental caries, unspecified
CPT/HCPCS: 96372; 99283; J1885

== ENCOUNTER 2022-06-24 09:32 | Outpatient (CLI) | payer OTHER, SELFPAY ==
[2022-06-24 09:45] LABS: Basophils Absolute Auto 0.05 K/mm3 (0.00-0.10); Basophils Percent Auto 0.8 % (0.0-1.0); Eosinophils Absolute Auto 0.22 K/mm3 (0.02-0.50); Eosinophils Percent Auto 3.5 % (1.0-6.0); Hematocrit 43.2 % (35.0-49.0); Hemoglobin 14.2 g/dL (12.0-15.0); Immature Granulocyte Absolute 0.04 K/mm3 (0.00-0.00); Immature Granulocyte Percent A 0.6 % (0.0-0.0); Lymphocytes Absolute Auto 1.73 K/mm3 (1.10-4.50); Lymphocytes Percent Auto 27.3 % (18.0-42.0); Mean Corpuscular HGB Conc 32.9 g/dL (32.0-36.0); Mean Corpuscular Hemoglobin 30.5 pg (27.0-31.0); Mean Corpuscular Volume 92.9 fL (78.0-102.0); Mean Platelet Volume 8.8 fl (9.2-11.8); Monocytes Absolute Auto 0.63 K/mm3 (0.10-0.90); Neutrophils Absolute Auto 3.7 K/mm3 (1.7-7.2); Neutrophils Percent Auto 57.8 % (50.0-70.0); Platelet Count Result 271 K/mm3 (150-420); Red Blood Count 4.65 M/mm3 (4.20-5.40); Red Cell Distribution Width 13.2 % (11.6-14.4); White Blood Count 6.3 K/mm3 (4.8-10.8)
--- NOTE | 2022-06-24 09:46 | ECG_ITS ---
Measurements Intervals [place] Rate: 67 P: 43 DC: 160 QRS: 40 QRSD: 109 T: 35 QT: 371 QTc: 393 Interpretive Statements SINUS RHYTHM NORMAL ECG NO PREVIOUS ECG AVAILABLE FOR COMPARISON Electronically Signed On 06-24-2022 14:43:19 VEGETABLE TESTER by Tai Gardner M.D.
[2022-06-24 10:19] LABS: Alanine Aminotransferase 40 U/L (14-59); Albumin Level 4.1 g/dL (3.4-5.0); Alkaline Phosphatase 47 U/L (46-116); Anion Gap 9 mmol/L (8-16); Aspartate Amino Transferase 18 U/L (15-37); Bilirubin,Total 0.3 mg/dL (0.00-1.00); Blood Urea Nitrogen 17 mg/dL (7-18); Calcium 9.1 mg/dL (8.5-10.1); Carbon Dioxide 27 mmol/L (21-32); Chloride 105 mmol/L (98-108); Estimated Glomerular Filt Rate > 60; Glucose 99 mg/dL (70-99); Osmolality Calculated 293 mOsm/kg (285-295); Potassium 4.5 mmol/L (3.5-5.1); Sodium 141 mmol/L (136-145); Total Protein 7.3 g/dL (6.4-8.2)
[2022-06-24 11:19] LABS: Free T4 Free Thyroxine 1.03 ng/dL (0.76-1.46); Thyroid Stimulating Hormone 1.11 uIU/mL (0.36-3.74)
== END 2022-06-24 09:33 | disposition home or self-care (01) ==
LOC: CHSLAB 09:34
PROVIDERS: PCP Nurse Practitioner Family; Visit Provider Nurse Practitioner Family
DX: R55 Syncope and collapse (principal)
CPT/HCPCS: 36415; 80053; 84439; 84443; 85025; 93005

== ENCOUNTER 2022-07-13 16:47 | Outpatient (CLI) | payer OTHER, SELFPAY ==
--- NOTE | 2022-08-13 11:51 | P.PCNHOL_ITS ---
Holter/Event Monitor Holter/Event Monitor Date of procedure: 07/13/22 Holter/Event Procedure: Event Monitor Indications: Syncope Conclusion: 1. 23 days event monitor between 07/13/22-08/11/22. There are 28 available tr ansmissions for analysis. 2. Underlying rhythm is sinus rhythm. HR range 50-144 bpm; average HR 80 bpm. HR at 144 bpm was on 07/14/22 at 06:58. 3. No premature supraventricular complexes. No supraventricular tachycardia. 4. There are occasional premature ventricular complexes with total burden of 1%. No ventricular tachycardia. 5. No significant pauses greater than 2 seconds. 6. Patient reports 1 episode of symptom other than listed which demonstrate sinus rhythm at 71 bpm.
== END 2022-07-13 16:48 | disposition home or self-care (01) ==
PROVIDERS: PCP Nurse Practitioner Family; Visit Provider Internal Medicine Cardiovascular Disease
DX: R55 Syncope and collapse (principal)
CPT/HCPCS: 93270

== ENCOUNTER 2022-08-06 13:51 | Outpatient (CLI) | payer OTHER, SELFPAY ==
--- NOTE | 2022-08-06 14:03 | ECHO_ITS ---
Patient Info Name: Shavonne Aleman Age: 47 years : 1975 Gender: Female Ht: 66 in Wt: 226 lbs BSA: 2.23 m2 HR: 68 bpm BP: 139 / 84 mmHg Heart Rhythm: Sinus Rhythm Technical Quality: Fair Exam Date: 08/06/2022 2:14 PM Exam Location: [facility] Patient Status: Outpatient Admit Date: 08/06/2022 Staff Ordering Physician: Niels Renee DO Record Press Operator: Roxie Jenkins RDCS Attending Provider: Niels Renee DO Referring Physician: Víctor ROBBINS; Exam Type: CA echo dop color flow w con Study Info Indications R55 - Syncope and collapse Complete two-dimensional, color flow and Doppler transthoracic echocardiogram is performed. Summary 1. Complete two-dimensional, color flow and Doppler transthoracic echocardiogram is performed. 2. Left ventricular chamber dimension is normal. 3. Left ventricular systolic function is normal, estimated at 60-65%. 4. The left ventricular diastolic function is abnormal. 5. E/e' 11 is mildly elevated. 6. Left atrial chamber dimension is mildly enlarged. 7. There is trace mitral valve regurgitation. 8. There is trace tricuspid valve regurgitation. 9. No pulmonary hypertension, estimated pulmonary arterial systolic pressure is 21 mmHg. 10. There is mild pulmonic regurgitation. Left Ventricle E/e' 11 is mildly elevated. Left ventricular chamber dimension is normal. Left ventricular systolic function is normal, estimated at 60-65%. The left ventricular diastolic function is abnormal. Right Ventricle Right ventricular chamber dimension is normal. Right ventricular systolic function is normal. Left Atria Left atrial chamber dimension is mildly enlarged. Right Atria Right atrial chamber dimension is normal. Aortic Valve The aortic valve is trileaflet. There is no aortic valve stenosis. There is no aortic valve regurgitation. Pulmonic Valve There is mild pulmonic regurgitation. Mitral Valve There is no mitral valve stenosis. There is trace mitral valve regurgitation. Tricuspid Valve There is trace tricuspid valve regurgitation. No pulmonary hypertension, estimated pulmonary arterial systolic pressure is 21 mmHg. Pericardium/Pleural There is no pericardial effusion. Inferior Vena Cava Normal inferior vena cava with >50% collapse upon inspiration consistent with normal right atrial pressure, 5 mmHg. Aorta The aortic root size at the sinus of Valsalva is normal. Left Ventricular Outflow Tract Name Value Normal LVOT 2D LVOT Diameter 2.02 cm LVOT Doppler LVOT Peak Velocity 91.01 cm/s LVOT Peak Gradient 3 mmHg LVOT Mean Gradient 2 mmHg LVOT VTI 17.40 cm LVOT VTI/AV VTI Ratio 0.51 LVOT Stroke Volume 55.60 ml Pulmonic Valve Name Value Normal RVOT Doppler
== END 2022-08-06 13:52 | disposition home or self-care (01) ==
LOC: CHSIMG 13:52
PROVIDERS: PCP Nurse Practitioner Family; Visit Provider Internal Medicine Cardiovascular Disease
DX: R55 Syncope and collapse (principal); I51.7 Cardiomegaly
CPT/HCPCS: 93306

== ENCOUNTER 2022-08-25 16:53 | Outpatient (RCR) | payer OTHER, SELFPAY ==
--- NOTE | 2022-08-25 17:31 | PTOPEVAL1 ---
Assessment and note entered by Kendell Hernandez Evaluation Information Assessment Status Evaluation Diagnosis right forearm pain Onset 09/07/21 Subjective Information Pt. reports that she was attacked by a dog last year. She reports that she has had pain since the attack. She reports that she has pain throughout the forearm and described toward the elbow. Pt. reports that her doctor is concerned that she developed adhesions into the forearm that her causing pain and tension. She does utilize mm. relaxors due to tingling in the arm. She has to take medication daily. She states that she does see a neurologist due to the numbness and tingling next month. 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 She reports that she takes sleeping pills but has for a very long time. She reports that her goal is to decrease her pain. Reported Pain Level Pain Score 3: Self Report Assessment PT Clinical Summary Pt. is a 47 year old female who enters the clinic with right forearm pain following development of scar tissue. She presents with slight weakness and notable pain with palpation. Note area of scarring over the extensor mass of the right forearm. Continued skilled PT is indicated in order to decrease pain and improve mobility and strength for improved IADL performance. Plan of Care Interventions Electrical Stimulation,Hot Pack/Cold Pack,Manual Therapy,Neuro Re-education,Patient/Caregiver Educati,Therapeutic Activities,Therapeutic Exercise,Self-Care/Home Management,Ultrasound PT Services Indicated Yes Treatment Frequency and 2x/week x 10 visits Duration These treatments will address the objective and functional deficits as defined above. The patient will be advanced safely and appropriately in order for the patient to progress towards his/her prior level of function. Additional exercises will be introduced and as well as a comprehensive home exercise program upon discharge, if needed, ?to ensure carryover of functional gains achieved in the clinic. This treatment plan has been reviewed and agreement upon by the patient.
--- NOTE | 2022-09-23 18:06 | PTOPREEVAL ---
Assessment and note entered by JT File, PT Evaluation Information Assessment Status Re-evaluation Diagnosis right forearm pain Onset 09/07/21 Subjective Information patent reports she is better overall, but still has pain and is fearful to try hammering at home with the R arm. she reports it is still painful and tight in the R forearn, especially with hammering. Reported Pain Level Pain Score 3,3,2: Self Report Assessment PT Clinical Summary mrs. loredo presents to skilled PT services for her 10th skilled therapy visit today. she displays improved rom of the R wrist, but continues to have weakness, tightness, pain, and scar tissue adhesions in the R forearm. she has made progress towards all goals, but has only met rom and HEP goals thus far. she would benefit from continued skilled PT with focus on achievement of remaining goals to return to her prior level functional activity performance/quality of life. Plan of Care Interventions Electrical Stimulation,Hot Pack/Cold Pack,Manual Therapy,Neuro Re-education,Patient/Caregiver Educati,Therapeutic Activities,Therapeutic Exercise,Self-Care/Home Management,Ultrasound PT Services Indicated Yes Treatment Frequency and continue skilled PT 2x weekly for 8 more visits Duration These treatments will address the objective and functional deficits as defined above. The patient will be advanced safely and appropriately in order for the patient to progress towards his/her prior level of function. Additional exercises will be introduced and as well as a comprehensive home exercise program upon discharge, if needed, ?to ensure carryover of functional gains achieved in the clinic. This treatment plan has been reviewed and agreement upon by the patient.
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
== END 2022-10-14 16:52 | disposition home or self-care (01) ==
LOC: CHSPT 16:53
DX: M79.631 Pain in right forearm (principal); M54.89 Other dorsalgia
CPT/HCPCS: 97014; 97035; 97110; 97140; 97161; G0283

== ENCOUNTER 2022-09-11 13:35 | Emergency (ER) | payer OTHER, SELFPAY ==
--- NOTE | ~2022-09-11 | CT_ITS ---
EXAMINATION: CT brain wo con INDICATION: Head injury COMPARISON: None TECHNIQUE: Standard unenhanced head CT. The dose-length product (DLP) was 605.33 mGy-cm. The mA was a djusted according to patient size. Iterative reconstruction technique was employed. FINDINGS: There is no intracranial hemorrhage, acute infarction, or abnormal mass lesion. The ventric les are normal. There is no abnormal mass effect or midline shift. The salas-white matter differentiat ion is normal. The basal cisterns are patent. The orbits are normal. The paranasal sinuses, mastoids and calvarium are normal. IMPRESSION: 1. No acute intracranial abnormality. Reviewed, dictated and finalized at location A.
--- NOTE | ~2022-09-11 | CT_ITS ---
EXAMINATION: CT cervical spine wo con DATE: 09/11/2022 14:19 INDICATION: Head injury TECHNIQUE: Computed tomography (CT) of the cervical spine was performed without intravenous contrast. The dose-length product (DLP) was 633.40 mGy-cm. Automated exposure control and iterative reconstruc tion technique were employed. COMPARISON: None FINDINGS: No fracture, dislocation, or subluxation. The vertebral body heights, alignment, and interv ertebral disc spaces are normal. The paravertebral soft tissues are unremarkable. The odontoid proces s is intact. IMPRESSION: 1. No acute osseous abnormality. Reviewed, dictated and finalized at location A.
[2022-09-11 13:41] VITALS: BP 159/99; PULSE 86; RESP 17; RESP 18; TEMP 36.7; O2SAT 98
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
[2022-09-11] MEDS: KETOROLAC (*BKC) 60 MG/2 ML VIAL IM (13:59)
[2022-09-11] MEDS: methocarbamoL 500 MG TABLET 1000 MG PO (13:59)
[2022-09-11] MEDS: diazePAM (*CRX) 5 MG TABLET PO (13:59)
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
[2022-09-11 15:24] VITALS: BP 138/82; PULSE 76; RESP 18; TEMP 36.7; O2SAT 100
== END 2022-09-11 15:26 | disposition home or self-care (01) ==
LOC: CHSED 14:55
PROVIDERS: Emergency Provider Emergency Medicine; PCP Nurse Practitioner Family
DX: S16.1XXA Strain of muscle, fascia and tendon at neck level, initial encounter (principal); I10 Essential (primary) hypertension; Z87.891 Personal history of nicotine dependence; V87.7XXA Person injured in collision between other specified motor vehicles (traffic), initial encounter
CPT/HCPCS: 70450; 72125; 96372; 99284; A9270; J1885; L0150

== ENCOUNTER 2022-10-26 17:01 | Outpatient (RCR) | payer OTHER, SELFPAY ==
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
--- NOTE | 2022-10-26 17:56 | OPREHPOC ---
Outpatient Therapy Plan of Care This is a Multidisciplinary Plan of Care that may contain components documented by all disciplines (PT, OT, and ST.) PT Problem 1 PT Problem #1 Knowledge Deficit PT Goal 1 Goal Independent with a HEP addressing postural awareness and demonstrate verbal understanding of safe positioning with work related activities. Target Visit 2 PT Problem 2 PT Problem #2 Pain PT Goal 1 Goal Reduce neck pain to 1/10 at worst with prolonged seated activities. Target Visit 8 PT Problem 3 PT Problem #3 Impaired Range of Motion PT Goal 1 Goal Improve bilateral c-spine rotation to 80 degrees and sidebending to 40 degrees to improve visual field Target Visit 8 PT Problem 4 PT Problem #4 Impaired Sensation PT Goal 1 Goal Improve middle and lower trapezius strength to 4+/ 5 to improve postural awareness Target Visit 8
--- NOTE | 2022-11-18 17:48 | OPREHPOC ---
Outpatient Therapy Plan of Care This is a Multidisciplinary Plan of Care that may contain components documented by all disciplines (PT, OT, and ST.) PT Problem 1 PT Problem #1 Knowledge Deficit PT Goal 1 Goal Independent with a HEP addressing postural awareness and demonstrate verbal understanding of safe positioning with work related activities. Target Visit 2 Progress Met PT Problem 2 PT Problem #2 Pain PT Goal 1 Goal Reduce neck pain to 1/10 at worst with prolonged seated activities. Target Visit 12 Comment continue PT Problem 3 PT Problem #3 Impaired Range of Motion PT Goal 1 Goal Improve bilateral c-spine rotation to 80 degrees and sidebending to 40 degrees to improve visual field Target Visit 12 Comment continue PT Problem 4 PT Problem #4 Impaired Sensation PT Goal 1 Goal Improve middle and lower trapezius strength to 4+/ 5 to improve postural awareness Target Visit 12 Comment continue
--- NOTE | 2022-11-18 17:48 | PTOPREEVAL ---
Assessment and note entered by Dana Gan DPT Evaluation Information Assessment Status Re-evaluation Diagnosis neck pain, left shoulder pain Onset 09/11/22 Subjective Information Patient reports that since starting PT pain is not as bad but she is unsure if that is due to PT or the injection. 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 She reports that pain in the wrist is improved. Reported Pain Level Pain Score 0,3: Self Report Assessment PT Clinical Summary Patient has been seen for 8 visits of skilled PT. Patient has demonstrated improved cervical ROM, improved shoulder strength and reports decreased overall pain levels. Patient continues to demonstrate decreased cervical rotation and decreased posterior shoulder strength impairing her ability to look over hear shoulder to drive and sit at her desk for prolonged periods. She would benefit from continued skilled PT to address remaining impairments and return to PLOF. Plan of Care Interventions Electrical Stimulation,Hot Pack/Cold Pack,Manual Therapy,Mechanical Traction,Neuro Re-education, Therapeutic Activities,Therapeutic Exercise PT Services Indicated Yes Treatment Frequency and continue 2x weekly for 4 visits Duration These treatments will address the objective and functional deficits as defined above. The patient will be advanced safely and appropriately in order for the patient to progress towards his/her prior level of function. Additional exercises will be introduced and as well as a comprehensive home exercise program upon discharge, if needed, ?to ensure carryover of functional gains achieved in the clinic. This treatment plan has been reviewed and agreement upon by the patient.
--- NOTE | 2022-12-07 17:39 | OPREHPOC ---
Outpatient Therapy Plan of Care This is a Multidisciplinary Plan of Care that may contain components documented by all disciplines (PT, OT, and ST.) PT Problem 1 PT Problem #1 Knowledge Deficit PT Goal 1 Goal Independent with a HEP addressing postural awareness and demonstrate verbal understanding of safe positioning with work related activities. Target Visit 2 Progress Met PT Problem 2 PT Problem #2 Pain PT Goal 1 Goal Reduce neck pain to 1/10 at worst with prolonged seated activities. Target Visit 12 Progress Not Met Comment continue PT Problem 3 PT Problem #3 Impaired Range of Motion PT Goal 1 Goal Improve bilateral c-spine rotation to 80 degrees and sidebending to 40 degrees to improve visual field Target Visit 12 Progress Not Met Comment continue PT Problem 4 PT Problem #4 Impaired Sensation PT Goal 1 Goal Improve middle and lower trapezius strength to 4+/ 5 to improve postural awareness Target Visit 12 Progress Not Met Comment continue
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
--- NOTE | 2022-12-24 14:56 | PTOPREEVAL ---
Assessment and note entered by Dana Gan DPT Evaluation Information Assessment Status Re-evaluation Diagnosis neck pain, left shoulder pain Onset 09/11/22 Subjective Information Patient reports she continues to have pain. She reports she got another injection on Sunday 12/17 with no significant changes to this point. She reports they have also discussed surgery. She was on hold from PT to follow up with MD and in that time she reports she was waking up more frequently and getting headaches. Reported Pain Level Pain Score 6,6: Self Report Pain Score 0,6: Self Report Assessment PT Clinical Summary Patient has been seen for 12 total visits of skilled PT. Patient has improved B cervical rotation this date with improved ability to look over her shoulder to drive. She reports without PT for 2 weeks she noticed an increase in pain and headaches that are limiting her daily functionals. Patient would benefit from continued skilled PT 2x weekly for 8 visits. Plan of Care Interventions Electrical Stimulation,Hot Pack/Cold Pack,Manual Therapy,Mechanical Traction,Neuro Re-education, Therapeutic Activities,Therapeutic Exercise PT Services Indicated Yes Treatment Frequency and continue 2x weekly for 8 visits Duration These treatments will address the objective and functional deficits as defined above. The patient will be advanced safely and appropriately in order for the patient to progress towards his/her prior level of function. Additional exercises will be introduced and as well as a comprehensive home exercise program upon discharge, if needed, ?to ensure carryover of functional gains achieved in the clinic. This treatment plan has been reviewed and agreement upon by the patient.
--- NOTE | 2022-12-24 14:56 | OPREHPOC ---
Outpatient Therapy Plan of Care This is a Multidisciplinary Plan of Care that may contain components documented by all disciplines (PT, OT, and ST.) PT Problem 1 PT Problem #1 Knowledge Deficit PT Goal 1 Goal Independent with a HEP addressing postural awareness and demonstrate verbal understanding of safe positioning with work related activities. Target Visit 2 Progress Met PT Problem 2 PT Problem #2 Pain PT Goal 1 Goal Reduce neck pain to 1/10 at worst with prolonged seated activities. Target Visit 20 Progress Not Met Comment continue PT Problem 3 PT Problem #3 Impaired Range of Motion PT Goal 1 Goal Improve bilateral c-spine rotation to 80 degrees and sidebending to 40 degrees to improve visual field Target Visit 20 Progress Not Met Comment progressing PT Problem 4 PT Problem #4 Impaired Sensation PT Goal 1 Goal Improve middle and lower trapezius strength to 4+/ 5 to improve postural awareness Target Visit 20 Progress Not Met Comment progressing
--- NOTE | 2023-01-21 13:06 | PTOPDC ---
Assessment and note entered by JT File, PT Evaluation Information Assessment Status Discharge Diagnosis neck pain, left shoulder pain Onset 09/11/22 Subjective Information patient reports she continues to have pain in the neck. she reports she is going to have the surgery on the neck due to the continued problems. she reports she is compliant with her HEP at home. Reported Pain Level Pain Score 0,7: Self Report Assessment PT Clinical Summary mrs. loredo presents to skilled PT services for her 20th skilled therapy visit. she presents today with increased pain in the neck, and reports she has settled on having surgery to the cervical spine. as of this date, she continues to lack achievement of goals for strength, rom, and pain reduction. she will DC skilled PT at this time, continue HEP, and return to skilled PT post op for rehab. Plan of Care PT Services Indicated Yes
== END 2023-01-21 23:59 | disposition home or self-care (01) ==
LOC: CHSPT 17:01
DX: M54.12 Radiculopathy, cervical region (principal); M25.512 Pain in left shoulder; M25.531 Pain in right wrist
CPT/HCPCS: 97012; 97014; 97110; 97140; 97161; G0283

== ENCOUNTER 2023-02-01 14:57 | Outpatient (CLI) | payer OTHER, SELFPAY ==
--- NOTE | ~2023-02-01 | XR_ITS ---
EXAMINATION: XR chest 2V 02/01/2023 15:31 INDICATION: Preop neck surgery. History of smoking. PROCEDURE: 2 view chest COMPARISON: No prior studies for comparison. FINDINGS: The lungs are clear. The cardiomediastinal silhouette is within normal limits. There are no pleural effusions. There is no pneumothorax suspected. IMPRESSION: 1: NO ACUTE CARDIOPULMONARY DISEASE. Reviewed, dictated and finalized at location A.
[2023-02-01 15:09] LABS: Hematocrit 41.1 % (35.0-49.0); Hemoglobin 13.7 g/dL (12.0-15.0); Mean Corpuscular HGB Conc 33.3 g/dL (32.0-36.0); Mean Corpuscular Hemoglobin 31.4 pg (27.0-31.0); Mean Corpuscular Volume 94.1 fL (78.0-102.0); Mean Platelet Volume 8.5 fl (9.2-11.8); Platelet Count Result 299 K/mm3 (150-420); Red Blood Count 4.37 M/mm3 (4.20-5.40); Red Cell Distribution Width 12.9 % (11.6-14.4); White Blood Count 7.7 K/mm3 (4.8-10.8)
[2023-02-01 15:20] LABS: Pregnancy On Board Control Positive; Urine Pregnancy Test Negative
[2023-02-01 15:29] LABS: Appearance Urine Clear (Clear); Bilirubin Urine Negative (Negative); Blood Urine Negative (Negative); Color Urine Light Yellow (Yellow); Glucose Urine UA Negative (Negative); Ketones Urine Negative (Negative); Leukocyte Esterase Ur Negative (Negative); Nitrate Urine Negative (Negative); Protein Urine Negative (Negative); pH Urine 7.5 (5.0-8.0)
[2023-02-01 15:34] LABS: Add Urine Microscopic? YES; Bacteria Urine Trace /hpf; RBC Urine None seen /hpf (0-2); Squamous Epithelial Cell Urine Few /hpf (Few); WBC Urine None seen /hpf (0-3)
[2023-02-01 15:37] LABS: Alanine Aminotransferase 28 U/L (14-59); Albumin Level 3.8 g/dL (3.4-5.0); Alkaline Phosphatase 42 U/L (46-116); Anion Gap 10 mmol/L (8-16); Aspartate Amino Transferase 16 U/L (15-37); Bilirubin,Total 0.4 mg/dL (0.00-1.00); Blood Urea Nitrogen 8 mg/dL (7-18); Calcium 9.5 mg/dL (8.5-10.1); Carbon Dioxide 27 mmol/L (21-32); Chloride 104 mmol/L (98-108); Estimated Glomerular Filt Rate > 60; Glucose 89 mg/dL (70-99); Osmolality Calculated 289 mOsm/kg (285-295); Sodium 141 mmol/L (136-145); Total Protein 6.8 g/dL (6.4-8.2)
== END 2023-02-01 14:58 | disposition home or self-care (01) ==
LOC: CHSLAB 14:59
PROVIDERS: PCP Nurse Practitioner Family; Visit Provider Nurse Practitioner Family
DX: Z01.818 Encounter for other preprocedural examination (principal); Z87.891 Personal history of nicotine dependence
CPT/HCPCS: 36415; 71046; 80053; 81001; 81025; 85027

== ENCOUNTER 2023-02-11 13:22 | Outpatient (CLI) | payer OTHER, SELFPAY ==
--- NOTE | 2023-02-11 13:29 | ECG_ITS ---
Measurements Intervals [place] Rate: 67 P: 58 GA: 160 QRS: 28 QRSD: 120 T: 4 QT: 384 QTc: 406 Interpretive Statements SINUS RHYTHM INTRAVENTRICULAR CONDUCTION DELAY LEFT VENTRICULAR HYPERTROPHY INFERIOR INFARCT, AGE INDETERMINATE BORDERLINE ST ABNORMALITY- ANTEROLAT/INF LEADS BASELINE ARTIFACT- I, III, AVR, AVL, AVF ABNORMAL ECG COMPARED TO ECG 06/24/2022 09:53:15 NO SIGNIFICANT CHANGES Electronically Signed On 02-11-2023 14:14:42 CDT by Neils Renee D.O.
== END 2023-02-11 13:23 | disposition home or self-care (01) ==
LOC: CHSCARD 13:25
PROVIDERS: PCP Nurse Practitioner Family; Visit Provider Nurse Practitioner Family
DX: Z01.818 Encounter for other preprocedural examination (principal); R94.31 Abnormal electrocardiogram [ECG] [EKG]
CPT/HCPCS: 93005

== ENCOUNTER 2023-03-25 15:37 | Outpatient (CLI) | payer OTHER, SELFPAY ==
--- NOTE | ~2023-03-25 | XR_ITS ---
EXAMINATION: XR chest 2V DATE: 03/25/2023 16:10 INDICATION: Cough and shortness of breath TECHNIQUE: PA and lateral views of the chest are obtained. COMPARISON: 02/01/2023 FINDINGS: The lungs are free of acute opacities. No pleural effusion or pneumothorax. The cardiomedia stinal silhouette is normal. There is mild thoracic spondylosis. Surgical changes are noted in the lo wer cervical spine. IMPRESSION: 1. No acute cardiopulmonary abnormality. Reviewed, dictated and finalized at location B. E PULLER
[2023-03-25 15:54] LABS: Basophils Absolute Auto 0.06 K/mm3 (0.00-0.10); Basophils Percent Auto 0.7 % (0.0-1.0); Eosinophils Percent Auto 2.4 % (1.0-6.0); Hematocrit 40.4 % (35.0-49.0); Hemoglobin 13.4 g/dL (12.0-15.0); Immature Granulocyte Absolute 0.06 K/mm3 (0.00-0.00); Immature Granulocyte Percent A 0.7 % (0.0-0.0); Lymphocytes Absolute Auto 2.15 K/mm3 (1.10-4.50); Lymphocytes Percent Auto 25.7 % (18.0-42.0); Mean Corpuscular HGB Conc 33.2 g/dL (32.0-36.0); Mean Corpuscular Hemoglobin 30.8 pg (27.0-31.0); Mean Corpuscular Volume 92.9 fL (78.0-102.0); Mean Platelet Volume 8.5 fl (9.2-11.8); Monocytes Absolute Auto 0.91 K/mm3 (0.10-0.90); Monocytes Percent Auto 10.9 % (2.0-11.0); Neutrophils Percent Auto 59.6 % (50.0-70.0); Platelet Count Result 317 K/mm3 (150-420); Red Blood Count 4.35 M/mm3 (4.20-5.40); Red Cell Distribution Width 12.4 % (11.6-14.4); White Blood Count 8.4 K/mm3 (4.8-10.8)
[2023-03-25 16:27] LABS: Alanine Aminotransferase 31 U/L (14-59); Albumin Level 3.4 g/dL (3.4-5.0); Alkaline Phosphatase 60 U/L (46-116); Anion Gap 3 mmol/L (8-16); Aspartate Amino Transferase 16 U/L (15-37); Bilirubin,Total 0.3 mg/dL (0.00-1.00); Blood Urea Nitrogen 15 mg/dL (7-18); Calcium 8.7 mg/dL (8.5-10.1); Carbon Dioxide 31 mmol/L (21-32); Chloride 106 mmol/L (98-108); Estimated Glomerular Filt Rate > 60; Glucose 95 mg/dL (70-99); Osmolality Calculated 290 mOsm/kg (285-295); Potassium 3.5 mmol/L (3.5-5.1); Sodium 140 mmol/L (136-145); Total Protein 7.2 g/dL (6.4-8.2)
[2023-03-25 16:48] LABS: CRP < 0.5 mg/dL (0.0-0.9)
== END 2023-03-25 15:38 | disposition home or self-care (01) ==
LOC: CHSLAB 15:39
PROVIDERS: PCP Nurse Practitioner Family; Visit Provider Nurse Practitioner Family
DX: R05.8 Other specified cough (principal); R06.02 Shortness of breath
CPT/HCPCS: 36415; 71046; 80053; 85025; 86140

== ENCOUNTER 2023-03-31 13:12 | Outpatient (RCR) | payer OTHER, SELFPAY ==
--- NOTE | 2023-03-31 14:21 | OPREHPOC ---
Outpatient Therapy Plan of Care This is a Multidisciplinary Plan of Care that may contain components documented by all disciplines (PT, OT, and ST.) PT Problem 1 PT Problem #1 Knowledge Deficit PT Goal 1 Goal The patient will demonstrate independence in a home exercise program to continue after discharge from PT. Target Visit 18 PT Problem 2 PT Problem #2 Impaired Range of Motion PT Goal 1 Goal The patient will demonstrate 60 degrees of cervical rotation in order to improve driving ability. Target Visit 18 PT Problem 3 PT Problem #3 Impaired Functional Mobil PT Goal 1 Goal The patient will demonstrate 20% or less of self perceived disability per the Neck Index. Target Visit 18 PT Problem 4 PT Problem #4 Impaired Strength PT Goal 1 Goal The patient will demonstrate at least 5/5 strength in the shoulder flexors and abductors to improve lifting ability for ADLs. Target Visit 18
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
--- NOTE | 2023-04-05 09:48 | OPREHPOC ---
Outpatient Therapy Plan of Care This is a Multidisciplinary Plan of Care that may contain components documented by all disciplines (PT, OT, and ST.) PT Problem 1 PT Problem #1 Knowledge Deficit PT Goal 1 Goal The patient will demonstrate independence in a home exercise program to continue after discharge from PT. Target Visit 18 Comment -progressing toward, continue PT Problem 2 PT Problem #2 Impaired Range of Motion PT Goal 1 Goal The patient will demonstrate 60 degrees of cervical rotation in order to improve driving ability. Target Visit 18 Comment -progressing toward, continue PT Problem 3 PT Problem #3 Impaired Functional Mobil PT Goal 1 Goal The patient will demonstrate 20% or less of self perceived disability per the Neck Index. Target Visit 18 Comment -progressing toward, continue PT Problem 4 PT Problem #4 Impaired Strength PT Goal 1 Goal 1.The patient will demonstrate at least 5/5 strength in the shoulder flexors and abductors to improve lifting ability for ADLs. 2.The patient will demonstrate the ability to lift 15# overhead to return to work tasks. Target Visit 18 Comment -progressing toward, continue
--- NOTE | 2023-04-05 09:48 | PTOPPROG ---
Assessment and note entered by Kathy Monterroso, PT Evaluation Information Assessment Status Progress Diagnosis s/p CDR C4-6 Onset 03/09/23 Subjective Information Shavonne Aleman reports she has not had any big changes in her symptoms or function since initiating PT last week. She continues to need support for her head after about 5 minutes when sitting up and notes increased pain is she looks down too long. She is also having pain in the left upper arm when she tries to move her arm to the side or behind her back which makes reaching for her seatbelt and washing her back difficult. 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 Assessment PT Clinical Summary Shavonne Aleman has completed 4 skilled PT visits since initiating PT on 03/31/23. She had a C4-6 disc replacement performed on 03/09/23. She is having difficulty holding her head up without support for long periods, difficulty working at a computer, difficulty moving her left arm to the side and behind her back, and decreased lifting ability. 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 She demonstrates improvements in cervical AROM since initiating PT last week. She does still have deficits in cervical AROM, presentation manager strength, left shoulder strength, and lifting ability. She was able to lift 27.5# from waist to shoulder and 7.5# from shoulder to overhead today for one repetition. She will continue to benefit from skilled PT to further address ongoing physical and functional deficits and return her to her PLOF. Plan of Care Interventions Electrical Stimulation,Hot Pack/Cold Pack,Patient/ Caregiver Educati,Therapeutic Activities, Therapeutic Exercise PT Services Indicated Yes Treatment Frequency and We would like to continue skilled PT 2 times a Duration week for 10 visits. These treatments will address the objective and functional deficits as defined above. The patient will be advanced safely and appropriately in order for the patient to progress towards his/her prior level of function. Additional exercises will be introduced and as well as a comprehensive home exercise
--- NOTE | 2023-04-15 08:43 | PTOPREEVAL ---
Assessment and note entered by Dana Gan DPT Evaluation Information Assessment Status Re-evaluation Diagnosis s/p CDR C4-6 Onset 03/09/23 Subjective Information Patient returns to MD on 04/18/23. She reports she continues to have difficulty with ROM and sitting for long periods of time. She reports pain varies day to day. Reported Pain Level Pain Score 5: Self Report Pain Score 2: Self Report Assessment PT Clinical Summary Shavonne Aleman has completed 7skilled PT visits since initiating PT on 03/31/23. She had a C4-6 disc replacement performed on 03/09/23. This date she demonstrates improved B UE strength, improved communications operator strength and improved cervical ROM. She continues to report increased pain levels and difficulty with turning her head. She reports sitting for long periods of time increase her pain . She returns to MD on 04/18/23. Plan of Care Interventions Electrical Stimulation,Hot Pack/Cold Pack,Patient/ Caregiver Educati,Therapeutic Activities, Therapeutic Exercise PT Services Indicated Yes Treatment Frequency and continue with current POC Duration These treatments will address the objective and functional deficits as defined above. The patient will be advanced safely and appropriately in order for the patient to progress towards his/her prior level of function. Additional exercises will be introduced and as well as a comprehensive home exercise program upon discharge, if needed, ?to ensure carryover of functional gains achieved in the clinic. This treatment plan has been reviewed and agreement upon by the patient.
--- NOTE | 2023-05-18 09:27 | OPREHPOC ---
Outpatient Therapy Plan of Care This is a Multidisciplinary Plan of Care that may contain components documented by all disciplines (PT, OT, and ST.) PT Problem 1 PT Problem #1 Knowledge Deficit PT Goal 1 Goal The patient will demonstrate independence in a home exercise program to continue after discharge from PT. Target Visit 18 Progress Met Comment . PT Problem 2 PT Problem #2 Impaired Range of Motion PT Goal 1 Goal The patient will demonstrate 60 degrees of cervical rotation in order to improve driving ability. Target Visit 18 Progress Met Comment . PT Problem 3 PT Problem #3 Impaired Functional Mobil PT Goal 1 Goal The patient will demonstrate 20% or less of self perceived disability per the Neck Index. Target Visit 18 Progress Met Comment . PT Problem 4 PT Problem #4 Impaired Strength PT Goal 1 Goal 1.The patient will demonstrate at least 5/5 strength in the shoulder flexors and abductors to improve lifting ability for ADLs. 2.The patient will demonstrate the ability to lift 15# overhead to return to work tasks. Target Visit 18 Progress Met Comment .
--- NOTE | 2023-05-18 09:28 | PTOPDC ---
Assessment and note entered by JT File, PT Evaluation Information Assessment Status Discharge Diagnosis s/p CDR C4-6 Onset 03/09/23 Subjective Information patient reports she fell down the steps last . she reports she fell and slid down 4-5 steps on her butt and elbows. she reports she did not hit her neck or her head. she reports since the fall, she has had no change in neck symptoms. she reports she follows up with the surgeon on the of this month. she reports she the only real issues are with her L shoulder (catching at times with movement). she reports this has been present since surgery. she reports she has no radicular symptoms in the hands. Reported Pain Level Pain Score 0: Self Report Assessment PT Clinical Summary mrs. loredo presents to skilled PT today for her th skilled PT visit s/p CDR of C4-6. she presents today with no neck pain, improved cervical rom, improve strength of the UE's, near equal health care manager strength, functional lifting ability overhead. she has met all goals for skilled PT this date, and is ready to DC skilled PT and continue at home independently with HEP. Plan of Care PT Services Indicated Yes
== END 2023-05-18 13:46 | disposition home or self-care (01) ==
LOC: CHSPT 13:12
DX: M54.12 Radiculopathy, cervical region (principal)
CPT/HCPCS: 97014; 97110; 97112; 97140; 97161; 97750; G0283

== ENCOUNTER 2023-05-03 09:13 | Outpatient (CLI) | payer OTHER, SELFPAY ==
[2023-05-03 11:40] LABS: Cholesterol 311 mg/dL (0-200); HDL Direct 53 mg/dL (40-60); LDL Cholesterol Calculated 234 mg/dL (<130); Triglycerides 121 mg/dL (0-150)
[2023-05-03 11:42] LABS: Thyroid Stimulating Hormone Reflex 1.33 u/IU/mL (0.36-3.74)
== END 2023-05-03 09:14 | disposition home or self-care (01) ==
LOC: CHSLAB 09:14
PROVIDERS: PCP Nurse Practitioner Family; Visit Provider Nurse Practitioner Family
DX: Z13.29 Encounter for screening for other suspected endocrine disorder (principal); R55 Syncope and collapse
CPT/HCPCS: 36415; 80061; 84443

== ENCOUNTER 2023-11-09 14:57 | Outpatient (CLI) | payer OTHER, SELFPAY ==
--- NOTE | ~2023-11-09 | XR_ITS ---
EXAM: [id number] DATE: 11/09/2023 15:31 HISTORY: all over LT knee pain x 1 day w/ swelling, NKI . COMPARISON: None available. FINDINGS: Decreased mineralization. No fracture or dislocation. No lytic or blastic lesion. Mild med ial joint space narrowing. Mild tricompartmental osteophytosis. Quadriceps and patellar enthesopathy. No erosion or periosteal change. Lower extremity varicosities. IMPRESSION: Mild tricompartmental left knee osteoarthritis. Varicose veins. Reviewed, dictated and finalized at location K.
--- NOTE | ~2023-11-09 | US_ITS ---
EXAMINATION: US venous doppler [facility] DATE: 11/09/2023 15:24 INDICATION: Posterior knee pain, rule out DVT. TECHNIQUE: Grayscale images without and with compression and Doppler images of the left lower extremi ty veins were obtained. COMPARISON: None FINDINGS: The left common femoral vein, profunda (deep) femoral vein, femoral vein, popliteal vein, peroneal v ein, posterior tibial veins, gastrocnemius vein, and greater saphenous vein are patent. IMPRESSION: Patent left lower extremity veins. No evidence of deep venous thrombosis. Reviewed, dictated and finalized at location K.
[2023-11-09 15:16] LABS: Basophils Absolute Auto 0.05 K/mm3 (0.00-0.10); Basophils Percent Auto 0.6 % (0.0-1.0); Eosinophils Absolute Auto 0.25 K/mm3 (0.02-0.50); Eosinophils Percent Auto 3.2 % (1.0-6.0); Hematocrit 41.5 % (35.0-49.0); Hemoglobin 14.2 g/dL (12.0-15.0); Immature Granulocyte Absolute 0.06 K/mm3 (0.00-0.00); Immature Granulocyte Percent A 0.8 % (0.0-0.0); Lymphocytes Absolute Auto 2.56 K/mm3 (1.10-4.50); Lymphocytes Percent Auto 33.1 % (18.0-42.0); Mean Corpuscular HGB Conc 34.2 g/dL (32-36); Mean Corpuscular Hemoglobin 30.8 pg (27.0-31.0); Mean Platelet Volume 8.6 fl (9.2-11.8); Monocytes Absolute Auto 0.79 K/mm3 (0.10-0.90); Monocytes Percent Auto 10.2 % (2.0-11.0); Neutrophils Absolute Auto 4.02 K/mm3 (1.70-7.20); Neutrophils Percent Auto 52.1 % (50.0-70.0); Platelet Count Result 259 K/mm3 (150-420); Red Blood Count 4.61 M/mm3 (4.20-5.40); Red Cell Distribution Width 13.2 % (11.6-14.4); White Blood Count 7.7 K/mm3 (4.8-10.8)
[2023-11-09 15:26] LABS: Hemoglobin A1C 5.3 % (<5.7)
[2023-11-09 15:49] LABS: Alanine Aminotransferase 37 U/L (14-59); Alkaline Phosphatase 47 U/L (46-116); Anion Gap 9 mmol/L (4-12); Aspartate Amino Transferase 21 U/L (15-37); Bilirubin,Total 0.5 mg/dL (0.00-1.00); Blood Urea Nitrogen 9 mg/dL (7-18); Carbon Dioxide 27 mmol/L (21-32); Chloride 103 mmol/L (98-108); Cholesterol 192 mg/dL (0-200); Estimated Glomerular Filt Rate > 60; Glucose 89 mg/dL (70-99); HDL Direct 50 mg/dL (40-60); LDL Cholesterol Calculated 110 mg/dL (<130); Osmolality Calculated 285 mOsm/kg (285-295); Potassium 3.8 mmol/L (3.5-5.1); Sodium 139 mmol/L (136-145); Total Protein 7.3 g/dL (6.4-8.2); Triglycerides 162 mg/dL (0-150)
[2023-11-09 15:59] LABS: Thyroid Stimulating Hormone Reflex 2.18 u/IU/mL (0.36-3.74)
== END 2023-11-09 14:58 | disposition home or self-care (01) ==
PROVIDERS: PCP Nurse Practitioner Family; Visit Provider Nurse Practitioner Family
DX: Z00.00 Encounter for general adult medical examination without abnormal findings (principal); E78.5 Hyperlipidemia, unspecified; M25.562 Pain in left knee; M79.89 Other specified soft tissue disorders; M17.12 Unilateral primary osteoarthritis, left knee; I83.92 Asymptomatic varicose veins of left lower extremity
CPT/HCPCS: 36415; 73560; 80053; 80061; 83036; 84443; 85025; 93971

== ENCOUNTER 2024-09-25 14:45 | Outpatient (NON) | payer OTHER, SELFPAY ==
--- OUTSIDE RECORDS SUMMARY | 2024-09-25 14:52 | XMS_ITS | Clinical Summary ---
Author Organization [facility] Address [address] [place] [address] Care Team Providers Care General Medical Practitioner Name Role Phone Unavailable Primary Care Provider Unavailabl e Source Comments [facility],non-owned Affiliates and Associated Physician Practices is amultiple site organization consisting of ambulatory clinics and hospital sitesin [place], [place], [place] and [place]. This disclosure is being madepursuant to the Care Everywhere program and may not contain all information available regarding this patient. 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 Gender Identity Not on file Sexual Orientation Not on file Plan of Treatment Health Maintenance Due Date Last Done Comments COLOGUARD (AGES 45-75) - COL ON CA SCREENING 1977 COLON MONITORING 1977 COLONOSCOPY - COLON CA SCREENING 1977 CT COLONOGRAPHY - COLON CA SCREENING 1977 Colorectal Cancer Screening 1977 FIT - COLON CA SCREENING 1977 FLEX SIG - COLON CA SCREENING 1977 LIPID TESTING 1977 MAMMOGRAM 1977 HIV SCREENING 02/12/1992 HEPATITIS C SCREENING 02/07/1995 DTAP/TDAP/TD VACCINES (1 - Tdap) 02/12/1996 HEPATITIS B VACCINE (1 of 3 - 19+ 3-dose series) 02/12/1996 COVID-19 VACCINE (2023-2 5 season) 2024 DEPRESSION SCREENING 05/16/2024 INFLUENZA VACCINE (Season Ended) 2025 ZOSTER VACCINE (1 of 2) 2027 HIB VACCINE Aged Out No longer eligi ble based on patient's age to complete this topic HPV VACCINE Aged Out No longer eligi ble based on patient's age to complete this topic MENINGOCOCCAL (Group B) VACC INE SHARED DECISION-MAKING Aged Out No longer eligibl e based on patient's age to complete this topic MENINGOCOCCAL GROUPS A/C/Y/W VACCINE Aged Out No longer eligible b ased on patient's age to complete this topic PNEUMOCOCCAL VACCINE Aged Out No long er eligible based on patient's age to complete this topic Insurance
--- OUTSIDE RECORDS SUMMARY | 2024-09-25 14:52 | XMS_ITS | Clinical Summary ---
Author Organization [facility] Address [facility] [place] [address] Care Team Providers Care Locator Specialist Name Role Phone Jose De Jesus Castellanos NP Primary Care Provider Allergies No known active allergies Medications celecoxib (CeleBREX) 100 mg capsule 08/06/2022 Active hydrOXYzine (ATARAX) 25 mg tablet 09/21/2022 Active metFORMIN (GLUCOPHAGE) 500 mg tablet 08/06/2022 Activ e methocarbamoL (ROBAXIN) 500 mg tablet 09/11/2022 Active venlafaxine XR (EFFEXOR-XR) 150 mg 24 hr capsule 08/06/2022 Active traZODone (DESYREL) 50 mg tablet Take 1 tablet (50 mg total) by mouth as needed for sleep Active cloNIDine (CATAPRES) 0.1 mg tablet Take 1 tablet (0.1 mg total) by mouth as needed for high blood pressure Active cyclobenzaprine (FLEXERIL) 10 mg tablet Take 1 tablet (10 mg total) by mouth 3 (three) times a day as needed for muscle spasms Active Active Problems No known active problems Social History Tobacco Use Types Packs/Day Years Used Date Smoking Tobacco: Never AUDIT-C Answer Date Recorded Q1: How often do you have a drink containing alc ohol? Never 09/22/2022 Average Number of Drinks Not on file 023 Q3: How often do you have si x or more drinks on one occasion? 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 Gender Identity Not on file Sexual Orientation Not on file Obstetrics History Last Filed Vital Signs Vital Sign Reading Time Taken Comments Blood Pressure 144/86 09/22/2022 9:54 AM CDT Pulse 90 09/22/2022 9:54 AM CDT Temperature 36.6 C (97.8 F) 09/22/2022 9:54 AM CDT Respiratory Rate 20 09/22/2022 9:54 AM CDT Oxygen Saturation 98% 09/22/2022 9:54 AM CDT Inhaled Oxygen Concentration - - Weight 104.1 kg (229 lb 6.4 oz) 09/22/2022 9:54 AM CDT Height 167.6 cm (5' 6 ) 09/22/2022 9:54 AM CDT Body Mass Index 37.03 09/22/2022 9:54 AM CDT Plan of Treatment Health Maintenance Due Date Last Done Comments Breast Cancer Screening-Mammogram 1977 Cervical Cancer Screening 1977 Colon Cancer Screening-Colonoscopy 1977 Depression Screening 1977 Hepatitis C Screening 1977 Hepatitis B Screening 1995 Regular Well Visit/Exam 18-64 1995 Influenza Vaccine (#1) 2024 DTaP/Tdap/Td Vaccine (3 - Td or Tdap) 09/08/2031 09/07/2021, 10/02/2013 Pneumococcal vaccine <65 Aged Out No longer eligible based on patient's age to complete this topic Insurance [facility] Care Teams Locator Specialist Relationship Specialty Start Date End Date Jose De Jesus Castellanos NP [address] [place] [address] PCP - General Nurse Practitioner 08/11/22
--- OUTSIDE RECORDS SUMMARY | 2024-09-25 14:52 | XMS_ITS | Clinical Summary ---
Author Organization [facility] Address [address] [place] [address] Care Team Providers Care Skein Bleacher Name Role Phone Unavailable Primary Care Provider Unavailabl e Social History Tobacco Use Types Packs/Day Years Used Date Smoking Tobacco: Never Assessed Comments Unknown Sex and Gender Information Value Date Recorded Sex Assigned at Not on file Legal Sex Female 4:24 PM CDT Gender Identity Not on file Sexual Orientation Not on file Plan of Treatment Health Maintenance Due Date Last Done Comments Cervical Cancer Screening Pa p Smear (Age 30 to 64) Every 3 Years 1977 Colorectal Cancer Screening Colonoscopy (10 Years) 1977 Annual Physical 02/12/1980 Hepatitis C 1995 DTaP, Tdap and Td Vaccines ( 1 - Tdap) 02/12/1996 Hepatitis B Vaccines (1 of 3 - 19+ 3-dose series) 02/12/1996 Cervical Cancer Screening Pa p with HPV Testing (Age 30 to 64) Every 5 Years 2007 Cervical Cancer Screening with HPV 2007 Mammogram Screening 2017 COVID-19 Vaccine (2023-2 5 season) 2024 Meningococcal B Vaccine Aged Out No l onger eligible based on patient's age to complete this topic Meningococcal Vaccine Aged Out No maude marylou eligible based on patient's age to complete this topic Pneumococcal Vaccine: Pediat rics (0 to 5 Years) and At-Risk Patients (6 to 49 Years) Aged Out No longer eligible b ased on patient's age to complete this topic RSV Immunizations Under 20 Months Aged Out No longer eligible based on patient's age to complete this topic
--- OUTSIDE RECORDS SUMMARY | 2024-09-25 14:52 | XMS_ITS | Referral Summary ---
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
[2024-09-25 15:11] LABS: Add Urine Microscopic? NO; Appearance Urine Clear (Clear); Bilirubin Urine Negative (Negative); Blood Urine Negative (Negative); Color Urine Light Yellow (Yellow); Glucose Urine UA Negative (Negative); Ketones Urine Negative (Negative); Leukocyte Esterase Ur Negative LEU/UL (Negative); Nitrate Urine Negative (Negative); Protein Urine Negative (Negative); Specific Grav Ur <= 1.005 (1.010-1.020); Urobilinogen Urine 0.2 mg/dL (0.2-1.0); pH Urine 6.5 (5.0-8.0)
== END 2024-09-25 14:46 | disposition home or self-care (01) ==
PROVIDERS: Visit Provider Nurse Practitioner Family
DX: R39.9 Unspecified symptoms and signs involving the genitourinary system (principal)
CPT/HCPCS: 81003